=== PATIENT | female | born 1985 | race African-American/Black ===

== ENCOUNTER 2016-07-14 14:34 | Emergency (ER) | payer OTHER ==
[~2016-07-14] VITALS: Ht 167.6 cm; Wt 82.7 kg
[~2016-07-14 14:34] MED LIST: ASPIR 8181 M1 PO; AYGESTIN5 MG PO; DICYCLOMINE HCL10 MG PO; HYDROCODON-ACE1 EAC7 PO; LUPRON; LUPRON DEPOT11.25 MG IM; MOTRIN800 MG PO; PAXIL20 MG PO; PROAIR HFA8.5 GM IH; REGLAN10 MG PO; TRAMADOL HCL50 MG PO; ZITHROMAX Z-PA250 MG PO; [UNRECOGNIZED DRUG - REMARK]
[2016-07-14 15:48] LABS: HEMATOCRIT 34.8 % (36.0-46.0); MCH 31.7 PG (29.0-34.0); MCHC 34.2 G/DL (30.0-36.0); MCV 92.8 FL (83-99); MEAN PLAT.VOLUME 9.9 uM^3 (9.5-12.4); PLATELET COUNT 285 K/uL (156-360); RBC DIS.WIDTH-CV 11.7 % (11.8-14.6); RED BLOOD COUNT 3.75 M/uL (3.80-5.20); WHITE BLOOD COUNT 8.9 K/uL (4.1-10.2)
[2016-07-14 15:56] LABS: CHLORIDE 109 mEq/L (99-109); POTASSIUM 4.2 mEq/L (3.7-5.4); SODIUM 138 mEq/L (136-147)
[2016-07-14 15:58] LABS: GLUCOSE 85 mg/dL (70-99)
[2016-07-14 15:59] LABS: ANION GAP 9 MEQ/L (2-14)
[2016-07-14 16:02] LABS: GFR ESTIMATE (CALCULATED) > 59 mL/min/; UREA NITROGEN (BUN) 6 mg/dL (9-23)
[2016-07-14 16:05] LABS: D-DIMER ELISA 0.58 mg/L FEU (< 0.57)
[2016-07-14 16:10] LABS: TROP-I INTERPRETATION NEGATIVE; TROPONIN-I < 0.01 ng/mL (0.0-0.30)
[2016-07-14 16:25] LABS: LIPASE 6 U/L (1.0-51.0)
[2016-07-14 16:40] LABS: TOTAL BILIRUBIN 0.4 mg/dL (0.0-1.0)
[2016-07-14 16:41] LABS: ALKALINE PHOSPHATASE 70 IU/L (3-129)
[2016-07-14 16:43] LABS: DIRECT BILIRUBIN 0.1 mg/dL (0.0-0.3)
[2016-07-14] MEDS ORDERED: FLEXERIL10 MG PO (19:33)
[2016-07-14] MEDS ORDERED: ULTRAM50 MG PO (19:47)
[2016-07-14 19:58] VITALS: BP 121/79
== END 2016-07-14 20:02 | disposition home or self-care (01) ==
LOC: EME 14:34
DX: R07.89 Other chest pain (principal); Z87.891 Personal history of nicotine dependence
CPT/HCPCS: 71020; 71275; 80048; 80076; 83690; 84484; 85027; 85379; 93005; 99281; 99285; J2270; J7030

== ENCOUNTER 2017-02-07 13:23 | Emergency (ER) | payer OTHER ==
[~2017-02-07] VITALS: Ht 170.2 cm; Wt 85.1 kg
[~2017-02-07 13:23] MED LIST changes: +FLEXERIL10 MG PO; +ULTRAM50 MG PO
[2017-02-07 13:59] LABS: HEMATOCRIT 35.7 % (36.0-46.0); MCH 32.2 PG (29.0-34.0); MCHC 35.3 G/DL (30.0-36.0); MCV 91.3 FL (83-99); MEAN PLAT.VOLUME 10.2 uM^3 (9.5-12.4); PLATELET COUNT 323 K/uL (156-360); RBC DIS.WIDTH-CV 12.5 % (11.8-14.6); RBC DIS.WIDTH-SD 41.4 % (39-53); RED BLOOD COUNT 3.91 M/uL (3.80-5.20); WHITE BLOOD COUNT 12.1 K/uL (4.1-10.2)
[2017-02-07 14:07] LABS: CHLORIDE 108 mEq/L (99-109); POTASSIUM 3.4 mEq/L (3.7-5.4); SODIUM 141 mEq/L (136-147)
[2017-02-07 14:10] LABS: GLUCOSE 112 mg/dL (70-99)
[2017-02-07 14:11] LABS: ANION GAP 14 MEQ/L (2-14); TOTAL BILIRUBIN 0.7 mg/dL (0.0-1.0)
[2017-02-07 14:13] LABS: ALKALINE PHOSPHATASE 80 IU/L (3-129); GFR ESTIMATE (CALCULATED) > 59 mL/min/
[2017-02-07 14:14] LABS: UREA NITROGEN (BUN) 3 mg/dL (9-23)
[2017-02-07 14:23] LABS: QUANTITATIVE HCG < 4.0 MIU/ML
[2017-02-07] MEDS ORDERED: ZOFRAN ODT4 MG PO (15:04)
[2017-02-07] MEDS ORDERED: BENTYL10 MG PO (15:04)
[2017-02-07 15:23] VITALS: BP 112/63
== END 2017-02-07 15:25 | disposition home or self-care (01) ==
LOC: EME 13:23
DX: R10.32 Left lower quadrant pain (principal); R11.2 Nausea with vomiting, unspecified; E03.9 Hypothyroidism, unspecified; Z87.891 Personal history of nicotine dependence
CPT/HCPCS: 74177; 80053; 81003; 84702; 85027; 99281; 99284; J1885; J2405; J7030